=== PATIENT | female | born 1980 | race Two or more races ===

== ENCOUNTER 2017-05-14 19:24 | Emergency (ER) | payer SELFPAY ==
[~2017-05-14] VITALS: Ht 167.6 cm; Wt 71.1 kg
[2017-05-14] MEDS ORDERED: ONDANSETRON 2MG/ML, 2ML IVPush ONE (22:00)
[2017-05-14] MEDS ORDERED: HYDROmorphone 1 MG/ML, 1ML IVPush PRN (22:00)
[2017-05-14] MEDS ORDERED: KETOROLAC 30 MG/1 ML IVPush ONE (22:00)
[2017-05-14] MEDS ORDERED: HYDROmorphone 1 MG/ML, 1ML ONE (22:10)
[2017-05-14] MEDS ORDERED: KETOROLAC 30 MG/1 ML ONE (22:10)
[2017-05-14] MEDS ORDERED: ONDANSETRON 2MG/ML, 2ML ONE (22:11)
[2017-05-14 22:46] LABS: BLOOD UREA NITROGEN 6 mg/dL (7-18)
[2017-05-14 22:49] LABS: HEMATOCRIT 26.5 % (34.6-47.8); HEMOGLOBIN 8.4 g/dL (11.7-16.4); WHITE BLOOD COUNT 7.3 x10^3/uL (3.4-10)
[2017-05-14 22:50] LABS: DIFF TOTAL CELLS COUNTED 100 CELL DIFF
[2017-05-14 22:58] LABS: ANISOCYTOSIS 1+; VERIFY COUNTS? YES
[2017-05-14 22:59] LABS: OVALOCYTES 1+
[2017-05-14 23:00] LABS: MICROCYTOSIS 1+
[2017-05-14] MEDS ORDERED: DIPHENHYDRAMINE 50 MG/ML, 1ML ONE (23:23)
[2017-05-14] MEDS ORDERED: METOCLOPRAMIDE 5 MG/ML, 2ML ONE (23:24)
[2017-05-14 23:27] VITALS: BP 116/64
[2017-05-14] MEDS ORDERED: DIPHENHYDRAMINE 50 MG/ML, 1ML IVPush ONE (23:30)
[2017-05-14] MEDS ORDERED: METOCLOPRAMIDE 5 MG/ML, 2ML IVPush ONE (23:30)
== END 2017-05-15 00:02 | disposition home or self-care (01) ==
LOC: ED 05-15 00:01
DX: G43.919 Migraine, unspecified, intractable, without status migrainosus (principal); D50.9 Iron deficiency anemia, unspecified; F17.200 Nicotine dependence, unspecified, uncomplicated
CPT/HCPCS: 36415; 80048; 82040; 85025; 96374; 96375; 99284; J1200; J1885; J2405; J2765

== ENCOUNTER 2018-06-20 10:20 | Emergency (ER) | payer SELFPAY ==
[~2018-06-20] VITALS: Ht 167.6 cm; Wt 68.8 kg
[2018-06-20 10:20] VITALS: BP 110/46
[2018-06-20] MEDS ORDERED: HYDROcodone/APAP 5/325 TABLET ONE (10:41)
[2018-06-20] MEDS ORDERED: HYDROcodone/APAP 5/325 TABLET PO ONE (11:00)
== END 2018-06-20 11:05 | disposition home or self-care (01) ==
LOC: ED 10:59
DX: K02.9 Dental caries, unspecified (principal); K08.89 Other specified disorders of teeth and supporting structures; G43.909 Migraine, unspecified, not intractable, without status migrainosus
CPT/HCPCS: 99283

== ENCOUNTER 2018-08-02 14:56 | Emergency (ER) | payer MEDICAID, OTHER ==
[~2018-08-02] VITALS: Ht 167.6 cm; Wt 64.5 kg
[2018-08-02 17:31] LABS: RAPID INFLUENZA A Negative (Negative); RAPID INFLUENZA B Negative (Negative)
[2018-08-02] MEDS ORDERED: ONDANSETRON ODT 4 MG ONE (17:59)
[2018-08-02] MEDS ORDERED: ONDANSETRON ODT 4 MG PO ONE (18:00)
[2018-08-02] MEDS ORDERED: ACETAMINOPHEN 325 MG TABLET PO ONE (18:00)
[2018-08-02] MEDS ORDERED: IBUPROFEN 600 MG TABLET ONE (18:00)
[2018-08-02] MEDS ORDERED: ACETAMINOPHEN 500 MG TABLET ONE (18:00)
[2018-08-02] MEDS ORDERED: IBUPROFEN 600 MG TABLET PO ONE (18:00)
[2018-08-02 18:17] LABS: HCG UR SG 1.014 (1.003-1.030)
[2018-08-02 19:08] LABS: MICROSCOPIC NOT IND
[2018-08-02 19:18] LABS: CULTURE INDICATED? NO
[2018-08-02 19:39] VITALS: BP 110/59
== END 2018-08-02 19:43 | disposition home or self-care (01) ==
LOC: ED 18:45
DX: B34.9 Viral infection, unspecified (principal); M79.10 Myalgia, unspecified site; R51 Headache; G89.29 Other chronic pain
CPT/HCPCS: 71046; 81003; 81025; 87400; 99284

== ENCOUNTER 2020-01-09 19:08 | Emergency (ER) | payer MEDICAID ==
[~2020-01-09] VITALS: Ht 167.6 cm; Wt 67.3 kg
[2020-01-09 19:11] VITALS: BP 126/76
--- NOTE | 2020-01-09 19:33 | NUR ---
PT SITTING UP ON ANDREA ALLISON, MONITORS IN PLACE, CALL LIGHT WITHIN REACH. AWAITING ERP FOR EVAL AND ORDERS
[2020-01-09] MEDS ORDERED: IBUPROFEN 800 MG TABLET ONE (19:45)
[2020-01-09] MEDS ORDERED: IBUPROFEN 800 MG TABLET PO STA (19:48)
--- NOTE | 2020-01-09 19:49 | NUR ---
PT MEDICATED PER MAR
== END 2020-01-09 20:36 ==
LOC: ED 20:30
DX: K02.9 Dental caries, unspecified (principal); N93.8 Other specified abnormal uterine and vaginal bleeding
CPT/HCPCS: 99283